=== PATIENT | female | born 2000 | race Caucasian/White ===

== ENCOUNTER 2021-05-18 11:03 | Emergency (ER) | payer BC, SELFPAY ==
[2021-05-18 12:36] VITALS: BP 114/63; PULSE 85; RESP 16; TEMP 37; O2SAT 99; BMI 26.5
[2021-05-18 12:50] LABS: UTC Influenza A Antigen Negative (Negative); UTC Influenza B Antigen Negative (Negative)
[2021-05-18 12:51] LABS: UTC Strep Screen (Rapid) Negative (Negative)
--- NOTE | 2021-05-18 13:02 | HMH.EDUTC ---
[facility] [place] Disposition Clinical Impression: Viral syndrome Sinusitis Qualifiers: Sinusitis location: unspecified location Chronicity: acute Recurrence: non-recurrent Qualified Code(s): J01.90 - Acute sinusitis, unspecified Pharyngitis Qualifiers: Pharyngitis/tonsillitis etiology: unspecified etiology Qualified Code(s): J02.9 - Acute pharyngitis, unspecified Disposition: Home, Self-Care Condition on Discharge: Good Instructions: DI for Sinusitis, Preventing the Spread of Coronavirus Discharge Instructions Additional Instructions: Drink plenty of fluids. Take tylenol or ibuprofen for pain or fever. Take the medications as directed. Follow up with your regular doctor. GO TO THE ER FOR ANY WORSENING SYMPTOMS Quarantine until you know the results of your covid-19 test. If it is positive, the health department should call you and give you further instructions about your length of Quarantine and other things. Notify your school or workplace of your results and follow their instructions regarding return to work/school. Prescriptions: Albuterol Sulfate [Albuterol Sulfate Hfa] 2 puffs IH Q6HP PRN 30 Days #1 each PRN Reason: Shortness Of Breath Transmission Status: Received by [id number] Brompheniramine/Pseudoephed/Dm [Bromfed Dm Cough Syrup] 5 ml PO Q6HP PRN #240 ml PRN Reason: Cough Transmission Status: Received by [id number] Azithromycin [Z-Elie 250mg Tab*] 250 mg PO UD DOSE PK #6 tab Transmission Status: Received by [id number] Referrals: Robinson Juarez MD [Primary Care Provider] - Forms: Work/School Release Time of Disposition: 13:24 Medical Decision Making - Medical Records Medical records reviewed: No: I reviewed the patient's medical records. - Benito Inquiry Pt receiving controlled substance: No Vital Signs: 05/18/21 12:36 05/18/21 13:03 Temperature 98.6 F 98.6 F Temperature Source Oral Pulse Rate 85 Pulse Rate [Left] 85 Respiratory Rate 16 16 Blood Pressure 114/63 Blood Pressure [Right Arm] 114/63 Blood Pressure Mean [Right Arm] 80 02 Sat by Pulse Oximetry 99 - Lab Data Lab results reviewed: Yes: I reviewed the patient's lab results. Lab Results 05/18/21 12:41: Strep Scn Rapid Clinic Negative 05/18/21 12:41: Influenza Type A Ag Negative, Influenza Type B Ag Negative Orders (Tests/Meds): ORDERS Category Date Time Status Strep Screen Confirmation Routine Micro 05/18/21 12:41 Received [facility] [place] HPI - General Stated complaint: sore throat, cough, congestion Time Seen by Provider: 05/18/21 13:02 Mode of Arrival: Ambulatory Source of Information: Patient Limitations: No Limitations Description of Symptoms (Recalled from Triage Doc. by RN): pt c/o a fever, congestion/drainage, chills/sweating, sore throat and ear aches. x2days. HEENT Symptoms (Recalled from RN notes): Yes (congestion/drainage, sore throat and ears ache) Resp Symptoms (Recalled from RN notes): Yes (cough) Skin Symptoms (Recalled from RN notes): No MS Symptoms (Recalled from RN notes): No Functional Status (Recalled from RN notes): wnl - History of Present Illness Provider Complaint: She states that she has been feeling bad for the past 2 days. She has had a fever, chills, sinus congestion, and sore throat. She has a history of asthma, but she has not had a significant cough since she started feeling bad. - Related Data Home Medications Medication Instructions Recorded Confirmed cetirizine 10 mg tablet 10 mg PO QDAY 05/26/17 09/20/18 levonorgestrel-ethinyl estradiol PO ONCE 28 Days #28 tab 05/26/17 09/20/18 0.1 mg-20 mcg tablet Previous Rx's Medication Instructions Recorded Albuterol Sulfate [Albuterol 2 puffs IH Q6HP PRN 30 Days #1 each 05/18/21 Sulfate Hfa] Azithromycin [Z-Elie 250mg Tab*] 250 mg PO UD DOSE PK #6 tab 05/18/21 Brompheniramine/Pseudoephed/Dm 5 ml PO Q6HP PRN #240 ml 05/18/21 [Bromfed Dm Cough Syrup] Allergies
[2021-05-18 13:03] VITALS: BP 114/63; PULSE 85; RESP 16; TEMP 37
== END 2021-05-18 13:36 | disposition home or self-care (01) ==
PROVIDERS: Emergency Provider Nurse Practitioner Family; PCP Family Medicine
DX: U07.1 COVID-19 (principal); J01.90 Acute sinusitis, unspecified; J02.9 Acute pharyngitis, unspecified; J45.909 Unspecified asthma, uncomplicated
CPT/HCPCS: 87804; 87880; 99203; C9803; G0463; U0003; U0005

== ENCOUNTER 2021-11-02 11:23 | Emergency (ER) | payer BC, SELFPAY ==
[2021-11-02 11:36] VITALS: BP 116/67; PULSE 84; RESP 17; TEMP 36.6; O2SAT 100; BMI 27.4
[2021-11-02 11:44] LABS: Adenovirus,PCR Not Detected (NotDetected); Bordetella Pertussis Not Detected (NotDetected); Chlamydophila Pneumoniae, PCR Not Detected (NotDetected); Coronavirus 19, PCR Not Detected (NotDetected); Coronavirus 229E Not Detected (NotDetected); Coronavirus NL63 Not Detected (NotDetected); Coronavirus OC43 Not Detected (NotDetected); Coronovirus HKU1,PCR Not Detected (NotDetected); Human Metapneumovirus Not Detected (NotDetected); Influenza A, PCR Not Detected (NotDetected); Influenza AH1, 2009 Not Detected (NotDetected); Influenza AH1, PCR Not Detected (NotDetected); Influenza AH3,PCR Not Detected (NotDetected); Influenza B, PCR Not Detected (NotDetected); Mycoplasma Pneumoniae, PCR Not Detected (NotDetected); Parainfluenza 1, PCR Not Detected (NotDetected); Parainfluenza 2, PCR Not Detected (NotDetected); Parainfluenza 3, PCR Not Detected (NotDetected); Parainfluenza 4, PCR Not Detected (NotDetected); Rhinovirus/Enterovirus Not Detected (NotDetected)
--- NOTE | 2021-11-02 12:05 | HMH.EDUTC ---
[facility] [place] Impression: Laryngitis, Bronchitis Disposition: Home, Self-Care Condition on Discharge: Good Instructions: DI for Laryngitis, Preventing the Spread of Coronavirus Discharge Instructions Additional Instructions: Drink plenty of fluids. Take tylenol or ibuprofen for pain or fever. Take the medications as directed. Follow up with your regular doctor. GO TO THE ER FOR ANY WORSENING SYMPTOMS Don't start the oral steroids until tomorrow, since you had the shot here today. Prescriptions: Brompheniramine/Pseudoephed/Dm [Bromfed Dm Cough Syrup] 5 ml PO Q6HP PRN #240 ml PRN Reason: Cough Transmission Status: [facility] Benzonatate [Benzonatate 100mg cap] 100 mg PO TIDP PRN #30 cap PRN Reason: Cough Transmission Status: [facility] methylPREDNISolone [Medrol] 4 mg PO DIRECTED 6 Days #21 packet Transmission Status: [facility] Azithromycin [Z-Elie 250mg Tab*] 250 mg PO UD DOSE PK #6 tab Transmission Status: [facility] Referrals: Robinson Juarez MD [Primary Care Provider] - Time of Disposition: 12:20 Medical Decision Making - Medical Records Medical records reviewed: No: I reviewed the patient's medical records. - Benito Inquiry Pt receiving controlled substance: No Vital Signs: 11/02/21 11:36 11/02/21 12:26 Temperature 97.8 F 97.8 F Temperature Source Oral Pulse Rate 84 Pulse Rate [Left Radial] 84 Respiratory Rate 17 17 Blood Pressure 116/67 Blood Pressure [Right Arm] 116/67 Blood Pressure Mean [Right Arm] 83 02 Sat by Pulse Oximetry 100 - Lab Data Lab results reviewed: Yes: I reviewed the patient's lab results. Lab Results 11/02/21 11:30: Chlamy pneumoniae PCR Not detected, Adenovirus (PCR) Not detected, B. pertussis DNA (PCR) Not detected, Coronavirus OC43 (PCR) Not detected, Coronavirus HKU1 (PCR) Not detected, Coronavirus 229E (PCR) Not detected, SARS-CoV-2 (PCR) Not detected, Coronavirus NL63 (PCR) Not detected, Human Metapneumovir PCR Not detected, Influenza A (H1) PCR Not detected, Influ A (H1N1/09) PCR Not detected, Influenza A (H3) PCR Not detected, Influenza Type A (PCR) Not detected, Influenza Type B (PCR) Not detected, M. pneumoniae (PCR) Not detected, Parainfluenza 1 (PCR) Not detected, Parainfluenza 2 (PCR) Not detected, Parainfluenza 3 (PCR) Not detected, Parainfluenza 4 (PCR) Not detected, RSV (PCR) Detected A, Entero/Rhino (PCR) Not detected 11/02/21 11:30: Group A Strep Rapid Negative Orders (Tests/Meds): ED MEDICATIONS Discontinued Medications Generic Name Dose Route Start Last Admin Trade Name Freq PRN Reason Stop Dose Admin Dexamethasone Sodium Phosphate 8 mg 11/02/21 12:16 11/02/21 12:25 Dexamethasone 4mg/Ml 1ml Vial IM 11/02/21 12:17 8 mg ONCE ONE Administration ORDERS Category Date Time Status Strep Screen Confirmation Stat Micro 11/02/21 11:30 [place] [facility] [place] - General Stated complaint: sore throat, loss of voice, yellow congestion Time Seen by Provider: 11/02/21 12:05 Description of Symptoms (Recalled from Triage Doc. by RN): patient comes in today with complaints of sore throat, hoarseness, blisters in mouth, bilateral ear pain,. productive cough. symptoms began . pt was exposed to RSV HEENT Symptoms (Recalled from RN notes): Yes Resp Symptoms (Recalled from RN notes): Yes Skin Symptoms (Recalled from RN notes): No MS Symptoms (Recalled from RN notes): No Functional Status (Recalled from RN notes): wnl - History of Present Illness Provider Complaint: Her mother states that the patient has had scratchy sore throat, cough, chest congestion with yellowish sputum for the past 3 days. They deny any fever, but she has had chills. She is having difficulty speaking due to her symptoms at this time. - Related Data Home Medications Medication Instructions Recorded Confirmed ce
[2021-11-02 12:09] LABS: Strep Scrn Group A (Rapid) Negative (Negative)
[2021-11-02 12:26] VITALS: BP 116/67; PULSE 84; RESP 17; TEMP 36.6
[2021-11-02 14:42] LABS: Respiratory Syncytial Virus Detected (NotDetected)
== END 2021-11-02 12:33 | disposition home or self-care (01) ==
PROVIDERS: Emergency Provider Nurse Practitioner Family; PCP Family Medicine
DX: J04.0 Acute laryngitis (principal); J20.5 Acute bronchitis due to respiratory syncytial virus
CPT/HCPCS: 87430; 87581; 87632; 87798; 96372; 99212; C9803; G0463; U0003; U0005

== ENCOUNTER 2022-01-08 09:05 | Emergency (ER) | payer BC, SELFPAY ==
[2022-01-08 10:00] VITALS: BP 110/67; PULSE 103; RESP 19; TEMP 37.3; O2SAT 100; BMI 28.0
[2022-01-08 10:18] LABS: UTC Strep Screen (Rapid) Negative (Negative)
--- NOTE | 2022-01-08 10:21 | EXP.UTC ---
Discharge Plan Disposition Patient Disposition: Home, Self-Care Condition: Good Prescriptions Prescriptions: New ondansetron 4 mg Tablet,Disintegrating 4 mg PO Q8H PRN (Reason: Nausea) Qty: 20 0RF No Action levonorgestrel-ethinyl estrad 0.1-20 mg-mcg tablet 1 tab PO ONCE 28 Days Qty: 28 Label Comments: cetirizine [Zyrtec] 10 mg tablet 10 mg PO QDAY Referrals Referrals: Robinson Juarez MD [Primary Care Provider] - Enter time for follow up Clinical Impressions Clinical Impression: Viral syndrome Stand Alone Forms Stand Alone Forms: Work/School Release Instructions Patient Instructions: Diarrhea, DI for Viral Syndrome, Coronavirus Disease 2019, Preventing the Spread of Coronavirus Discharge Instructions Discharge ED Provider: Lisa Alvarado [facility] [place] General Stated complaint: Congestion, sore throat, vomiting, diarreah Mode of Arrival: Ambulatory Source of Information: Patient and Relative Limitations: No Limitations Time Seen by Provider: 01/08/22 10:21 Description of Symptoms (Recalled from Triage Doc. by RN): PATIENT C/O VOMITING, DIARRHEA, HEADACHE, AND SORE THROAT SINCE WEDNESDAY HEENT Symptoms (Recalled from RN notes): Yes Resp Symptoms (Recalled from RN notes): No Skin Symptoms (Recalled from RN notes): No MS Symptoms (Recalled from RN notes): No Functional Status (Recalled from RN notes): WNL History of Present Illness Provider Complaint: Patient states that she has not felt well since Wednesday States that on Wednesday she had Vomiting and diarrhea States that diarrhea has continued but not vomited since Wednesday but has had some nausea States that she has been having body aches, chills and sore scratchy throat so today when she was still not feeling well she came in to get checked Related Data Home Medications Medication Instructions Recorded Confirmed cetirizine 10 mg tablet (Zyrtec) 10 mg PO QDAY Allergy symptoms 05/26/17 01/08/22 levonorgestrel-ethinyl estradiol 1 tab PO ONCE control 28 05/26/17 01/08/22 0.1 mg-20 mcg tablet days #28 tabs Previous Rx's Medication Instructions Recorded ondansetron 4 mg disintegrating 4 mg PO Q8H PRN Nausea #20 tabs 01/08/22 tablet Allergies Allergy/AdvReac Type Severity Reaction Status Date / Time ceftriaxone [From Rocephin] AdvReac Severe Verified 09/20/18 13:08 Worker's Comp Is this a Worker's Comp case?: No PFSH PFSH Medical History Asthma Social History Smoking Status: Never smoker alcohol intake: never substance use type: denies use current occupational status: student Travel in the last 8 weeks: None ROS Obtained: Yes All systems reviewed & no additional complaints except as documented and Yes Systems reviewed as appropriate & no additional complaints except as documented Constitutional Constitutional: Reports system reviewed and no additional complaints, except as documented, Reports body ache, Reports chills, Reports fatigue, Reports fever(s) and Reports headache(s) ENT Ears, Nose, Mouth, and Throat: Reports system reviewed and no additional complaints, except as documented, Reports headache(s), Reports nasal congestion, Reports nasal discharge and Reports sore throat Cardiovascular Cardiovascular: Reports system reviewed and no additional complaints, except as documented Respiratory Respiratory: Reports system reviewed and no additional complaints, except as documented and Reports as per HPI Gastrointestinal Gastrointestingal: Reports system reviewed and no additional complaints, except as documented, as per HPI, diarrhea and vomiting Musculoskeletal Musculoskeletal: Reports system reviewed and no additional complaints, except as documented Neurologic Neurologic: Reports headache(s) Endocrine Endocrine: Reports fatigue Physical Exam General General appearance: alert and in no georgie
[2022-01-08 10:32] VITALS: BP 110/67; PULSE 103; RESP 19; TEMP 37.3; O2SAT 100
[2022-01-08 10:53] LABS: Adenovirus,PCR Not Detected (NotDetected); Bordetella Pertussis Not Detected (NotDetected); Chlamydophila Pneumoniae, PCR Not Detected (NotDetected); Coronavirus 229E Not Detected (NotDetected); Coronavirus NL63 Not Detected (NotDetected); Coronavirus OC43 Not Detected (NotDetected); Coronovirus HKU1,PCR Not Detected (NotDetected); Human Metapneumovirus Not Detected (NotDetected); Influenza A, PCR Not Detected (NotDetected); Influenza AH1, 2009 Not Detected (NotDetected); Influenza AH1, PCR Not Detected (NotDetected); Influenza AH3,PCR Not Detected (NotDetected); Influenza B, PCR Not Detected (NotDetected); Mycoplasma Pneumoniae, PCR Not Detected (NotDetected); Parainfluenza 1, PCR Not Detected (NotDetected); Parainfluenza 2, PCR Not Detected (NotDetected); Parainfluenza 3, PCR Not Detected (NotDetected); Parainfluenza 4, PCR Not Detected (NotDetected); Respiratory Syncytial Virus Not Detected (NotDetected); Rhinovirus/Enterovirus Not Detected (NotDetected)
[2022-01-08 21:58] LABS: Coronavirus 19, PCR Detected (NotDetected)
== END 2022-01-08 10:40 | disposition home or self-care (01) ==
PROVIDERS: Emergency Provider Nurse Practitioner; PCP Family Medicine
DX: R11.10 Vomiting, unspecified (principal); R19.7 Diarrhea, unspecified; Z20.822 Contact with and (suspected) exposure to COVID-19
CPT/HCPCS: 87581; 87632; 87798; 87880; 99212; C9803; G0463; U0003; U0005

== ENCOUNTER 2022-09-20 13:21 | Emergency (ER) | payer BC, SELFPAY ==
[2022-09-20 13:44] VITALS: BP 118/67; PULSE 77; RESP 18; TEMP 37.2; O2SAT 99; BMI 29.6
[2022-09-20 13:54] LABS: UTC Strep Screen (Rapid) Positive (Negative)
--- NOTE | 2022-09-20 13:58 | EXP.UTC ---
Discharge Plan Disposition Patient Disposition: Home, Self-Care Condition: Good Prescriptions Prescriptions: New azithromycin [azithromycin] 250 mg tablet 250 mg PO DIRECTED Qty: 6 0RF Rx Instructions: Take two (2) tablets on day #1, then one (1) tablet day #2 thru #5 No Action levonorgestrel-ethinyl estrad 0.1-20 mg-mcg tablet 1 tab PO ONCE 28 Days Qty: 28 Label Comments: cetirizine [Zyrtec] 10 mg tablet 10 mg PO QDAY ondansetron 4 mg Tablet,Disintegrating 4 mg PO Q8H PRN (Reason: Nausea) Qty: 20 0RF Referrals Follow up/Referrals: Robinson Juarez MD [Primary Care Provider] - See instructions Activity Restrictions/Add. Instructions Additional Instructions/Restrictions: Start antibiotics today be sure to take it as ordered with the full length of time although you should start feeling better in 24-48 hours. Change toothbrush and toothpaste 24-48 hours after starting antibiotics Tylenol or Motrin as needed for fever or pain Encourage fluids, water, Gatorade, Powerade, try cold fluids, popsicles, ice cream will make it feel better You are contagious for 24 hours. Avoid kissing anyone, no eating or drinking after anyone. You are contagious. Follow-up the ER for new or worsening symptoms or no noticeable improvement over the next 24-48 hours. Follow-up with PCP this week. Clinical Impressions Clinical Impression: Strep sore throat Stand Alone Forms Stand Alone Forms: Work/School Release Instructions Patient Instructions: DI for Strep Throat [facility]charge [facility] [place] HPI General Stated complaint: sore throat,blisters,headache, Mode of Arrival: Ambulatory Source of Information: Patient Limitations: No Limitations Time Seen by Provider: 09/20/22 13:58 Description of Symptoms (Recalled from Triage Doc. by RN): pt c/o a sore throat and blisters in her mouth x2d HEENT Symptoms (Recalled from RN notes): Yes Resp Symptoms (Recalled from RN notes): No Skin Symptoms (Recalled from RN notes): No MS Symptoms (Recalled from RN notes): No Functional Status (Recalled from RN notes): wnl History of Present Illness Provider Complaint: 21 yr old female presents for sore throat and blisters in mouth for 2 days Related Data Home Medications Medication Instructions Recorded Confirmed cetirizine 10 mg tablet (Zyrtec) 10 mg PO QDAY Allergy symptoms 05/26/17 01/08/22 levonorgestrel-ethinyl estradiol 1 tab PO ONCE control 28 05/26/17 01/08/22 0.1 mg-20 mcg tablet days #28 tabs Previous Rx's Medication Instructions Recorded ondansetron 4 mg disintegrating 4 mg PO Q8H PRN Nausea #20 tabs 01/08/22 tablet azithromycin 250 mg tablet 250 mg PO DIRECTED #6 tabs 09/20/22 Allergies Allergy/AdvReac Type Severity Reaction Status Date / Time ceftriaxone [From Rocephin] AdvReac Severe Verified 09/20/22 13:47 Worker's Comp Is this a Worker's Comp case?: No [facility] Disclaimer: The information contained in this section may have been updated after the patient was seen, as this information can be updated by other users. Medical History , GARAGE HAND) Asthma Social History , GARAGE HAND) Smoking Status: Never smoker alcohol intake: never substance use type: denies use current occupational status: student Travel in the last 8 weeks: None ROS Obtained: Yes All systems reviewed & no additional complaints except as documented Constitutional Constitutional: Reports system reviewed and no additional complaints, except as documented, Reports as per HPI and Reports fever(s) Eyes Eyes: Reports system reviewed and no additional complaints, except as documented ENT Ears, Nose, Mouth, and Throat: Reports system reviewed and no additional complaints, except as documented, Reports as per HPI and Reports sore throat Cardiovascular Cardiovascula
[2022-09-20 14:07] VITALS: BP 118/67; PULSE 77; RESP 18; TEMP 37.2
== END 2022-09-20 14:07 | disposition home or self-care (01) ==
PROVIDERS: Emergency Provider Nurse Practitioner Family; PCP Family Medicine
DX: J02.0 Streptococcal pharyngitis (principal); R51.9 Headache, unspecified
CPT/HCPCS: 87880; 99212; 99214; G0463

== ENCOUNTER 2023-03-03 17:44 | Emergency (ER) | payer BC, SELFPAY ==
[2023-03-03 17:44] VITALS: BP 131/80; PULSE 107; RESP 18; TEMP 36.9; O2SAT 99; BMI 28.9
--- OUTSIDE RECORDS SUMMARY | 2023-03-03 17:50 | XMS_ITS | Patient Health Record ---
Author Name Unknown Organization [facility] PR[facility] Address [address] [place] [address] Care Team Providers Care [employer] Architect Name Role Phone Huong Eli Unavailable [phone] Cat Laura Unavailable [phone] Angela Menjivar Unavailable [phone] ALLERGIES Allergen (clinical drug ingredient) Drug/Non Drug Allergy documented on EMR Reaction Allergy Type Onset Date Status ROCEPHIN Unspecified Non Drug Allergy 2014-03-02 Active ENCOUNTERS from 1999 to 2023-03-03 Encounter Location Date Provider Diagnosis [facility] [address] [place] [address] September, 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 [place] [address] May, Cat Laura [facility] [address] [place] [address] Jun, Angela Menjivar [facility] [address] [place] [address] Nov, Angela Menjivar [facility] [address] [place] [address] Dec, Angela Menjivar [facility] [address] [place] [address] Oct, Angela Menjivar
--- NOTE | 2023-03-03 18:13 | EXP.UTC ---
Discharge Plan Disposition Patient Disposition: Home, Self-Care Condition: Good Prescriptions Prescriptions: New ondansetron 4 mg tablet,disintegrating 4 mg PO Q8H PRN (Reason: nausea and vomiting) Qty: 10 0RF dicyclomine 10 mg capsule 10 mg PO TID PRN (Reason: abdominal pain/cramping) Qty: 15 0RF No Action levonorgestrel-ethinyl estrad 0.1-20 mg-mcg tablet 1 tab PO ONCE 28 Days Qty: 28 Patient Comments: Referrals Follow up/Referrals: Robinson Juarez MD [Primary Care Provider] - See instructions Activity Restrictions/Add. Instructions Additional Instructions/Restrictions: *Monitor Temp, Over the counter Motrin or Tylenol as directed/as needed Tylenol every 4 hours and Motrin every 6 hours (as long as your family doctor has told you that you can take it) for fever or pain. and straight to ER if unable to lower temp less than 101.0 after medication given *Warm salt water gargles may help to soothe the throat *Throat Lozenges? *Warm fluids like tea with honey may help to soothe the throat? *Sleep elevated *Humidifier/Vaporizer Follow up IMMEDIATELY for new or worsening symptoms or no Noticeable improvement over the next 48-72 hours. 911 for difficulty breathing or swallowing Drink extra fluids with and between meals. If you have difficulty drinking, try very small amounts of water or suck on ice chips. ? Avoid fruit juices, as these do not replace minerals and can actually increase diarrhea. ? Children and adults can use sports drinks to replenish electrolytes. Younger children and infants should use products formulated for children, like oral rehydration solutions. ? Eat food in small amounts and let your stomach recover. ? Get lots of rest. You may feel tired or weak. ? No greasy or fried foods for the next 24-48 hours BRAT diet Bananas Rice Apples and Panora ? Make sure to drink plenty of liquids ? Return if needed ? Straight to ER if any life threatening symptoms ? Zofran as prescribed ? You was given an outpatient order for diarrhea panel, please collect specimen and bring back to outpatient lab then call back to the [facility] or follow up with family doctor for results ? Follow up with family doctor in the next 48-72 hours if no improvement or any worsening of symptoms You were tested for today for COVID19 your test result should be back in the next 24-48 hours, you may check your results on the [facility] [employer] [facility] for your results if it is positive you will need to quarantine for 5 days Clinical Impressions Clinical Impression: Viral syndrome Stand Alone Forms Stand Alone Forms: Work/School Release Instructions Patient Instructions: Diarrhea, DI for Viral Syndrome, DI for Nausea -- Adult Discharge ED Provider: Lisa Alvarado [facility] [place] General Stated complaint: body aches, fever, upset stomach Mode of Arrival: Ambulatory Source of Information: Patient Limitations: No Limitations Time Seen by Provider: 03/03/23 18:13 Description of Symptoms (Recalled from Triage Doc. by RN): fever, nausea, diarrhea, and body aches HEENT Symptoms (Recalled from RN notes): Yes Resp Symptoms (Recalled from RN notes): No Skin Symptoms (Recalled from RN notes): No MS Symptoms (Recalled from RN notes): No Functional Status (Recalled from RN notes): n/a History of Present Illness Provider Complaint: Patient states that she hasnt been feeling well today States that she has been feeling achy all over, chills, low grade fever, nausea and diarrhea States that this evening she still wasnt feeling well so she came in to get checked out Related Data Home Medications Medication Instructions Recorded Confirmed levonorgestrel-ethinyl estradiol 1 tab PO ONCE control 28 05/26/17 03/03/23 0.1 mg-20 mcg tablet days #28 tabs Previous Rx's Medication Inst
[2023-03-03 18:16] LABS: UTC Influenza A Antigen Negative (Negative); UTC Influenza B Antigen Negative (Negative)
[2023-03-03 18:28] VITALS: BP 131/80; PULSE 107; RESP 18; TEMP 36.9; O2SAT 99
== END 2023-03-03 18:28 | disposition home or self-care (01) ==
PROVIDERS: Emergency Provider Nurse Practitioner; PCP Family Medicine
DX: R50.9 Fever, unspecified (principal); R19.7 Diarrhea, unspecified; R11.0 Nausea; B34.9 Viral infection, unspecified; J45.909 Unspecified asthma, uncomplicated
CPT/HCPCS: 87635; 87804; 99212; 99214; G0463

== ENCOUNTER 2024-05-03 09:02 | Emergency (ER) | payer BC, SELFPAY ==
[2024-05-03 09:36] VITALS: BP 116/53; PULSE 81; RESP 18; TEMP 36.8; O2SAT 100; BMI 27.4
--- NOTE | 2024-05-03 09:45 | ED_ITS ---
Discharge Plan Disposition Patient Disposition: Home, Self-Care Condition: Good Prescriptions Prescriptions: New amoxicillin 500 mg tablet 500 mg PO TID 10 Days Qty: 30 0RF [id number]-bdgrntovs-IU [Bromfed DM] 2-30-10 mg/5 mL Syrup 5 ml PO Q6H PRN (Reason: Cough) Qty: 240 0RF No Action loratadine [Claritin] 10 mg tablet 10 mg PO DAILY Referrals Follow up/Referrals: Robinson Juarez MD [Primary Care Provider] - See instructions Activity Restrictions/Add. Instructions Additional Instructions/Restrictions: Drink plenty of fluids. Take tylenol or ibuprofen for pain or fever. Take the medications as directed. Follow up with your regular doctor. GO TO THE ER FOR ANY WORSENING SYMPTOMS Clinical Impressions Clinical Impression: Pharyngitis Stand Alone Forms Stand Alone Forms: Work/School Release Instructions Patient Instructions: Sore Throat, DI for Pharyngitis/Tonsillopharyngitis -- Adult Print Language Print Language: Czech Discharge ED Provider: Gian Maguire [facility] General Stated complaint: dizzy sore throat vomiting Mode of Arrival: Ambulatory Source of Information: Patient Time Seen by Provider: 05/03/24 09:45 Description of Symptoms (Recalled from Triage Doc. by RN): SORE THROAT, VOMITING, DIZZY HEENT Symptoms (Recalled from RN notes): Yes Resp Symptoms (Recalled from RN notes): No Skin Symptoms (Recalled from RN notes): No MS Symptoms (Recalled from RN notes): No Functional Status (Recalled from RN notes): WNL Related Data Home Medications ?Medication ?Instructions ?Recorded ?Confirmed loratadine 10 mg tablet (Claritin) 10 mg PO DAILY 01/25/24 05/03/24 Previous Rx's ?Medication ?Instructions ?Recorded amoxicillin 500 mg tablet 500 mg PO TID 10 days #30 tabs 05/03/24 laeiedozrsfxljv-zhtcgrrqicffwol-OL 5 ml PO Q6H PRN Cough #240 mL 05/03/24 2 mg-30 mg-10 mg/5 mL oral syrup (Bromfed DM) Allergies Allergy/AdvReac Type Severity Reaction Status Date / Time ceftriaxone (From Rocephin) AdvReac Severe Verified 01/25/24 10:58 Worker's Comp Is this a Worker's Comp case?: No PFSH PFSH Disclaimer: The information contained in this section may have been updated after the patient was seen, as this information can be updated by other users. Medical History (Updated 05/03/24 @ 10:29 by Gian Maguire APRN) Asthma Social History Smoking Status: Never smoker alcohol intake: never substance use type: denies use current occupational status: student Travel in the last 8 weeks: None Have you lived/traveled outside US in past 30 days?: No Contact w/someone who lives/traveled outside US past 30 days?: No Exposure to someone with infectious disease in past 14 days?: No Do you have a fever (greater than 100.4 F or 38 C)?: No Have you tested positive for COVID-19: No Exposed to someone with COVID-19 in past 14 days?: No Do you have a sore throat?: No Do you have a cough?: No Do you have any weakness?: No Do you have any diarrhea?: No Are you experiencing any unusual bleeding?: No Do you have any muscle aches/pain?: No Do you have any abdominal pain?: No Are you experiencing loss of taste or smell?: No ROS Obtained: Yes All systems reviewed & no additional complaints except as documented Constitutional Constitutional: Reports chills and Reports fever(s) Eyes Eyes: Denies eye discharge ENT Ears, Nose, Mouth, and Throat: Reports as per HPI Cardiovascular Cardiovascular: Denies chest pain Respiratory Respiratory: Denies chest congestion and Reports cough Gastrointestinal Gastrointestingal: Reports nausea; Denies abdominal pain, constipation, cramping, diarrhea or vomiting Musculoskeletal Musculoskeletal: Denies arthralgias Integumentary/Breasts Skin/Breast: Denies rash Neurologic Neurologic: Denies paresthesias Physical Exam General General appearance: alert and in no apparent distress Head Head exam: atraumatic, normocephalic and normal inspection Eye Eye exam: Present normal appearance, PERRL and EOMI ENT ENT exam: Present mucous membranes moist and normal external ear exam Expanded ENT Exam TM/Canal exam: Bilateral TM: erythema and bulging Nose exam: Absent sinus tenderness Mouth exam: Present normal external inspection; Absent drooling Teeth exam: Present normal inspection Throat exam: Present tonsillar erythema, tonsillomegaly and tonsillar exudate Neck Neck exam: Present normal inspection, full ROM and trachea midline; Absent tenderness, meningismus or lymphadenopathy Chest Chest inspection: Present normal inspection and symmetric chest wall rise; Absent tenderness Respiratory Respiratory exam: Present normal lung sounds bilaterally; Absent respiratory distress, wheezes, stridor or accessory muscle use Cardiovascular Cardiovascular exam: Present regular rate and normal rhythm; Absent systolic murmur or diastolic murmur Abdominal Exam Abdominal exam: Present soft and normal bowel sounds; Absent distention, tenderness, guarding, rebound or rigidity Extremities Exam Extremities exam: Present normal inspection and normal capillary refill; Absent calf tenderness Back Exam Back exam: Present normal inspection and full ROM; Absent tenderness, CVA tenderness (R) or CVA tenderness (L) Neurological Exam Neurological exam: Present alert, oriented X3 and CN II-XII intact Psychiatric Psychiatric exam: Present normal affect and normal mood Skin Skin exam: Present warm, dry, intact and normal color Medical Decision Making Medical Records Medical records reviewed: No I reviewed the patient's medical records. Screening: Per USPSTF and CDC recommendations, given the prevalence of disease in our region, it is our hospital?s policy to screen for HIV and viral Hepatitis for all patients aged 18 and over and those with ongoing risk factors. Benito Inquiry Pt receiving controlled substance: No Vital Signs: 05/03/24 09:36 Temperature 98.2 F Temperature Source Oral Pulse Rate [Left Radial] 81 Respiratory Rate 18 Blood Pressure [Left Arm] 116/53 L Blood Pressure Mean [Left Arm] 74 02 Sat by Pulse Oximetry 100 Lab Data Lab results reviewed: Yes I reviewed the patient's lab results.
[2024-05-03 09:46] LABS: UTC Strep Screen (Rapid) Negative (Negative)
[2024-05-03 10:30] VITALS: BP 116/53; PULSE 81; RESP 18; TEMP 36.8
[2024-05-03 10:36] LABS: Coronavirus 19, PCR Not Detected (NotDetected); Influenza A, PCR Not Detected (NotDetected); Influenza B, PCR Not Detected (NotDetected)
== END 2024-05-03 10:34 | disposition home or self-care (01) ==
PROVIDERS: Emergency Provider Nurse Practitioner Family; PCP Family Medicine
DX: J02.0 Streptococcal pharyngitis (principal)
CPT/HCPCS: 87636; 87880; 99213; G0381

== ENCOUNTER 2024-06-20 19:01 | Emergency (ER) | payer BC, SELFPAY ==
[2024-06-20] VITALS (7 sets, daily range): BP systolic 103–127; BP diastolic 50–88; PULSE 75–105; RESP 16–20; TEMP 36.7–36.8; O2SAT 83–100; BMI 27.4
--- NOTE | 2024-06-20 19:19 | HMH.EDGENADL ---
Discharge Plan Disposition Patient Disposition: Home, Self-Care Prescriptions Prescriptions: New promethazine 25 mg tablet 25 mg PO TID PRN (Reason: nausea and vomiting) 5 Days Qty: 20 0RF ondansetron 4 mg tablet,disintegrating 4 mg PO Q6H PRN (Reason: nausea and vomiting) 5 Days Qty: 20 0RF nitrofurantoin monohyd/m-cryst 100 mg capsule 100 mg PO BID 5 Days Qty: 10 0RF Rx Instructions: must administer with a meal/food No Action loratadine [Claritin] 10 mg tablet 10 mg PO DAILY Referrals Follow up/Referrals: Robinson Juarez MD [Primary Care Provider] - See instructions Activity Restrictions/Add. Instructions Additional Instructions/Restrictions: Please take your Phenergan first-line for nausea vomiting and use Zofran as a backup. Return with any significant worsening of your symptoms keep your outpatient follow-up with [facility]. Clinical Impressions Clinical Impression: Nausea and vomiting during , Asymptomatic bacteriuria during Instructions Patient Instructions: DI for Diarrhea and Traveler's Diarrhea -- Adult, DI for Diarrhea and Traveler's Diarrhea -- Child, DI for Nausea -- Adult, DI for Nausea -- Child Print Language Print Language: Burmese Discharge ED Provider: Manohar Webster General Adult HPI <CAIN Byrne - Last Filed: 06/20/24 20:35> General Chief complaint: Nausea/Vomiting/Diarrhea Stated complaint: fainted,vomiting Time Seen by Provider: 06/20/24 19:15 History of Present Illness HPI narrative: Patient presents for evaluation of syncope and nausea. Patient is 8 weeks with her first and has had significant hyperemesis of . Patient states she has not been able to keep anything down today so she is gone without. She was out walking her dog and she felt lightheaded and sat down to recover. Patient thought she had an which should be an rewalking she passed out and woke up on the ground. She denies any injury pain headache chest pain shortness of breath fever chills hemoptysis hematochezia melena diarrhea. Patient reports that she is still nauseated now though. She has not yet seen [facility] but had an appointment scheduled for tomorrow. Related Data Home Medications ?Medication ?Instructions ?Recorded ?Confirmed loratadine 10 mg tablet (Claritin) 10 mg PO DAILY 09/10/24 02/04/25 Previous Rx's ?Medication ?Instructions ?Recorded nitrofurantoin 100 mg PO BID 5 days #10 caps 06/20/24 monohydrate/macrocrystals 100 mg capsule ondansetron 4 mg disintegrating 4 mg PO Q6H PRN nausea and 06/20/24 tablet vomiting 5 days #20 tabs promethazine 25 mg tablet 25 mg PO TID PRN nausea and 06/20/24 vomiting 5 days #20 tabs Allergies Allergy/AdvReac Type Severity Reaction Status Date / Time ceftriaxone (From Rocephin) AdvReac Severe Verified 01/25/24 10:58 PFSH <CAIN Byrne - Last Filed: 06/20/24 20:35> PFS Disclaimer: The information contained in this section may have been updated after the patient was seen, as this information can be updated by other users. Medical History (Updated 06/20/24 @ 21:36 by Manohar Webster MD) Asthma Social History Smoking Status: Never smoker alcohol intake: never substance use type: denies use current occupational status: student Travel in the last 8 weeks: None Have you lived/traveled outside US in past 30 days?: No Contact w/someone who lives/traveled outside US past 30 days?: No Exposure to someone with infectious disease in past 14 days?: No Do you have a fever (greater than 100.4 F or 38 C)?: No Have you tested positive for COVID-19: No Exposed to someone with COVID-19 in past 14 days?: No Do you have a sore throat?: No Do you have a cough?: No Do you have any weakness?: Yes Do you have any diarrhea?: No Are you experiencing any unusual bleeding?: No Do you have any muscle aches/pain?: No Do you have any abdominal pain?: No Are you experiencing loss of taste or smell?: No Other Medical History Have you received the Flu Vaccine for this season: No Have you received the Pneumonia Vaccine: No <CAIN Byrne - Last Filed: 06/20/24 20:35> ROS Obtained: Yes Systems reviewed as appropriate & no additional complaints except as documented Physical Exam <CIAN Byrne - Last Filed: 06/20/24 20:35> General General appearance: alert and in no apparent distress Eye Eye exam: Present PERRL Respiratory Respiratory exam: Present normal lung sounds bilaterally Cardiovascular Cardiovascular exam: Present tachycardia Neurological Exam Neurological exam: Present alert, oriented X3, CN II-XII intact and normal gait; Absent motor sensory deficit Medical Decision Making <CAIN Byrne - Last Filed: 06/20/24 20:35> Medical Records Medical records reviewed: Yes I reviewed the patient's medical records. Screening: Per USPSTF and CDC recommendations, given the prevalence of disease in our region, it is our hospital?s policy to screen for HIV and viral Hepatitis for all patients aged 18 and over and those with ongoing risk factors. Benito Inquiry Pt receiving controlled substance: No Vital Signs: 06/20/24 19:10 06/20/24 19:14 06/20/24 19:30 Temperature 98.2 F Temperature Source Oral Pulse Rate 96 H 91 H Pulse Rate [Right Brachial] 105 H Respiratory Rate 16 Blood Pressure 124/88 127/76 Blood Pressure [Right Arm] 124/88 Blood Pressure Mean [Right Arm] 100 Blood Pressure Source Blood Pressure Source [Right Arm] Automatic Cuff Blood Pressure Position 02 Sat by Pulse Oximetry 100 99 99 Oxygen Delivery Method Room Air 06/20/24 20:00 06/20/24 20:23 06/20/24 21:13 Temperature Temperature Source Pulse Rate 75 81 101 H Pulse Rate [Right Brachial] Respiratory Rate 16 16 Blood Pressure 110/81 110/81 103/50 L Blood Pressure [Right Arm] Blood Pressure Mean [Right Arm] Blood Pressure Source Automatic Cuff Automatic Cuff Blood Pressure Source [Right Arm] Blood Pressure Position Supine Sitting 02 Sat by Pulse Oximetry 83 L 99 Oxygen Delivery Method Room Air Lab Data Lab results reviewed: Yes I reviewed the patient's lab results. Lab Results 06/20/24 19:09: Urine Color Yellow, Urine Appearance Clear, Urine pH 7.0, Ur Specific Leon 1.010, Urine Protein Negative, Urine Glucose (UA) Negative, Urine Ketones Negative, Urine Blood Negative, Urine Nitrate Negative, Urine Bilirubin Negative, Urine Urobilinogen 0.2, Ur Leukocyte Esterase 3+ A, Urine RBC None, Urine WBC 10-20, Ur Squamous Epith Cells 10-20, Urine Bacteria 2+, Urine HCG, Qual Positive 06/20/24 19:56: WBC 6.4, RBC 5.00, Hgb 14.2, Hct 43.1, MCV 86.2, MCH 28.4, MCHC 32.9, RDW 12.4, Plt Count 253, MPV 10.4, Neut % (Auto) 60.0, Lymph % (Auto) 29.8, [place] % (Auto) 6.1, Eos % (Auto) 3.3, Baso % (Auto) 0.8, Neut # (Auto) 3.8, Lymph # (Auto) 1.9, [place] # (Auto) 0.4, Eos # (Auto) 0.2, Baso # (Auto) 0.1, Sodium 138, Potassium 3.8, Chloride 104, Carbon Dioxide 23, Anion Gap 14.8, BUN 7, Creatinine 0.60, Estimated Creat Clear 155, Estimated GFR 123, Est GFR ( Amer) 149, Glucose 93, Calcium 9.7, Magnesium 1.7, Total Bilirubin 0.4, AST 25, ALT 21, Alkaline Phosphatase 90, Troponin I < 0.01, Total Protein 6.9, Albumin 4.4, Globulin 2.5, Albumin/Globulin Ratio 1.8, TSH 1.09, Free T4 Index 3.8 L, Thyroxine (T4) 12.4 H, T3 Uptake 31 06/20/24 19:56 06/20/24 19:56 Orders (Tests/Meds): ED MEDICATIONS Discontinued Medications Generic Name Dose Route Start Last Admin Trade Name Freq PRN Reason Stop Dose Admin Sodium Chloride 1,000 mls @ 999 mls/hr 06/20/24 19:22 06/20/24 19:47 Sod Chlor 0.9% 1000ml Bag IV 06/20/24 20:22 999 mls/hr .Q1H1M ONE Administration Promethazine HCl 12.5 mg 06/20/24 19:29 06/20/24 19:46 Promethazine Hcl 25mg/Ml 1ml Vial IV 06/20/24 19:30 12.5 mg ONCE ONE Administration Sodium Chloride 25 ml 06/20/24 19:29 06/20/24 19:46 Sodium Chloride 0.9% 25ml Bag IV 06/20/24 19:30 25 ml ONCE ONE Administration ORDERS Category Date Time Status POCUS Point of Care (ER Only) Stat Exams 06/20/24 19:26 Completed CBC w/Auto Diff [Complete Blood Count Auto Diff] Stat Lab 06/20/24 19:56 Completed CMP [Comprehensive Metabolic Panel] Stat Lab 06/20/24 19:56 Results HCG,Quantitative Stat Lab 06/20/24 19:56 Results Magnesium Stat Lab 06/20/24 19:56 Completed Thyroid Panel Stat Lab 06/20/24 19:56 Completed Trop I [Troponin I] Stat Lab 06/20/24 19:56 Results Troponin I Q3H Lab 06/20/24 22:30 Ordered Troponin I Q3H Lab 06/21/24 01:30 Ordered UA [Urinalysis and Microscopic] Stat Lab 06/20/24 19:09 Completed Urine , HCG Qual. Stat Lab 06/20/24 19:09 Completed Urine Culture Stat Micro 06/20/24 19:09 Received Medical Decision Narrative: In summary patient is a 23-year-old female who presents to the emergency department for evaluation of syncope and hyperemesis of . Patient is initially normotensive at 124/88 but tachycardic at 105 with sinus tachycardia on the bedside monitor breathing 16 times a minute with an O2 sat of 100% upon arrival, afebrile at 98.2. Physical exam is remarkable for a well-nourished well-developed 23-year-old female who does not currently appear to be acute distress. She has no focal neurologic deficits is awake alert and oriented person place and circumstance [place] Coma Score is 15 cranial nerves II through XII are intact grossly to exam. She has no cervical or dorsal spine tenderness. She has no obvious injury on physical survey is ambulatory in the ER without focal neurologic deficits.. Differential diagnosis includes dehydration versus hyperemesis of versus electrolyte abnormality etc. Initial workup will be conducted with hematologic labs urinalysis POCUS. Initial interventions include crystalloid bolus Phenergan. Initial workup reviewed by me and her POCUS reveals a viable intrauterine urinalysis shows that it is negative for ketones blood nitrite 3+ positive for leukocyte Estrace on dipstick and her microscopic exam shows no red blood cells 10-20 white cells 10-20 epithelial cells and 2+ bacteria. The remainder of her workup is pending at the time of handoff to Dr. Webster at 2100 hrs. <Manohar Webster MD - Last Filed: 06/20/24 21:36> Vital Signs: 06/20/24 19:10 06/20/24 19:14 06/20/24 19:30 Temperature 98.2 F Temperature Source Oral Pulse Rate 96 H 91 H Pulse Rate [Right Brachial] 105 H Respiratory Rate 16 Blood Pressure 124/88 127/76 Blood Pressure [Right Arm] 124/88 Blood Pressure Mean [Right Arm] 100 Blood Pressure Source Blood Pressure Source [Right Arm] Automatic Cuff Blood Pressure Position 02 Sat by Pulse Oximetry 100 99 99 Oxygen Delivery Method Room Air 06/20/24 20:00 06/20/24 20:23 06/20/24 21:13 Temperature Temperature Source Pulse Rate 75 81 101 H Pulse Rate [Right Brachial] Respiratory Rate 16 16 Blood Pressure 110/81 110/81 103/50 L Blood Pressure [Right Arm] Blood Pressure Mean [Right Arm] Blood Pressure Source Automatic Cuff Automatic Cuff Blood Pressure Source [Right Arm] Blood Pressure Position Supine Sitting 02 Sat by Pulse Oximetry 83 L 99 Oxygen Delivery Method Room Air Lab Data Lab Results 06/20/24 19:09: Urine Color Yellow, Urine Appearance Clear, Urine pH 7.0, Ur Specific Leon 1.010, Urine Protein Negative, Urine Glucose (UA) Negative, Urine Ketones Negative, Urine Blood Negative, Urine Nitrate Negative, Urine Bilirubin Negative, Urine Urobilinogen 0.2, Ur Leukocyte Esterase 3+ A, Urine RBC None, Urine WBC 10-20, Ur Squamous Epith Cells 10-20, Urine Bacteria 2+, Urine HCG, Qual Positive 06/20/24 19:56: WBC 6.4, RBC 5.00, Hgb 14.2, Hct 43.1, MCV 86.2, MCH 28.4, MCHC 32.9, RDW 12.4, Plt Count 253, MPV 10.4, Neut % (Auto) 60.0, Lymph % (Auto) 29.8, [place] % (Auto) 6.1, Eos % (Auto) 3.3, Baso % (Auto) 0.8, Neut # (Auto) 3.8, Lymph # (Auto) 1.9, [place] # (Auto) 0.4, Eos # (Auto) 0.2, Baso # (Auto) 0.1, Sodium 138, Potassium 3.8, Chloride 104, Carbon Dioxide 23, Anion Gap 14.8, BUN 7, Creatinine 0.60, Estimated Creat Clear 155, Estimated GFR 123, Est GFR ( Amer) 149, Glucose 93, Calcium 9.7, Magnesium 1.7, Total Bilirubin 0.4, AST 25, ALT 21, Alkaline Phosphatase 90, Troponin I < 0.01, Total Protein 6.9, Albumin 4.4, Globulin 2.5, Albumin/Globulin Ratio 1.8, TSH 1.09, Free T4 Index 3.8 L, Thyroxine (T4) 12.4 H, T3 Uptake 31 Orders (Tests/Meds): ED MEDICATIONS Discontinued Medications Generic Name Dose Route Start Last Admin Trade Name Freq PRN Reason Stop Dose Admin Sodium Chloride 1,000 mls @ 999 mls/hr 06/20/24 19:22 06/20/24 19:47 Sod Chlor 0.9% 1000ml Bag IV 06/20/24 20:22 999 mls/hr .Q1H1M ONE Administration Promethazine HCl 12.5 mg 06/20/24 19:29 06/20/24 19:46 Promethazine Hcl 25mg/Ml 1ml Vial IV 06/20/24 19:30 12.5 mg ONCE ONE Administration Sodium Chloride 25 ml 06/20/24 19:29 06/20/24 19:46 Sodium Chloride 0.9% 25ml Bag IV 06/20/24 19:30 25 ml ONCE ONE Administration ORDERS Category Date Time Status POCUS Point of Care (ER Only) Stat Exams 06/20/24 19:26 Completed CBC w/Auto Diff [Complete Blood Count Auto Diff] Stat Lab 06/20/24 19:56 Completed CMP [Comprehensive Metabolic Panel] Stat Lab 06/20/24 19:56 Results HCG,Quantitative Stat Lab 06/20/24 19:56 Results Magnesium Stat Lab 06/20/24 19:56 Completed Thyroid Panel Stat Lab 06/20/24 19:56 Completed Trop I [Troponin I] Stat Lab 06/20/24 19:56 Results Troponin I Q3H Lab 06/20/24 22:30 Ordered Troponin I Q3H Lab 06/21/24 01:30 Ordered UA [Urinalysis and Microscopic] Stat Lab 06/20/24 19:09 Completed Urine , HCG Qual. Stat Lab 06/20/24 19:09 Completed Urine Culture Stat Micro 06/20/24 19:09 Received Medical Decision Narrative: In summary patient is a 23-year-old female who presents to the emergency department for evaluation of syncope and hyperemesis of . Patient is initially normotensive at 124/88 but tachycardic at 105 with sinus tachycardia on the bedside monitor breathing 16 times a minute with an O2 sat of 100% upon arrival, afebrile at 98.2. Physical exam is remarkable for a well-nourished well-developed 23-year-old female who does not currently appear to be acute distress. She has no focal neurologic deficits is awake alert and oriented person place and circumstance [place] Coma Score is 15 cranial nerves II through XII are intact grossly to exam. She has no cervical or dorsal spine tenderness. She has no obvious injury on physical survey is ambulatory in the ER without focal neurologic deficits.. Differential diagnosis includes dehydration versus hyperemesis of versus electrolyte abnormality etc. Initial workup will be conducted with hematologic labs urinalysis POCUS. Initial interventions include crystalloid bolus Phenergan. Initial workup reviewed by me and her POCUS reveals a viable intrauterine urinalysis shows that it is negative for ketones blood nitrite 3+ positive for leukocyte Estrace on dipstick and her microscopic exam shows no red blood cells 10-20 white cells 10-20 epithelial cells and 2+ bacteria. The remainder of her workup is pending at the time of handoff to Dr. Webster at [address] Webster I took over primary care from Xander Frost around 9 PM. Patient feeling much better labs unremarkable aside from urinalysis that does demonstrate some evidence of possible urinary tract infection however she is not symptomatic so we will treat her for asymptomatic bacteria in the setting of . Keflex was not an option which is primarily first-line for me because she has a ceftriaxone allergy. Therefore nitrofurantoin was prescribed. Phenergan and Zofran were also given first-line she has been told to take Phenergan and use Zofran as a backup she has follow-up with OB tomorrow and she was discharged in improved and stable condition. Procedures <Manohar Webster MD - Last Filed: 06/20/24 21:36> Miscellaneous Procedure Procedure Performed: Limited OB ultrasound Indication: Confirmation of Identified structures: [-Uterus -Left adnexa -Right adnexa -Pouch of [place]] Findings: Uterus: Definitive IUP consistent with dates FHR: 165 Right adnexa: No free fluid Left adnexa: No free fluid Cul de sac: Free fluid absent Impression: -IUP: Present - heart rate: 160 -Ectopic : Absent -Free fluid: Absent Images were saved to permanent archive The study was technically adequate CPT Transabdominal: 16246-10 This study was performed by me, and I personally interpreted all images/videos. Based on my clinical judgement, these images were adequate and did not necessitate further imaging. Critical Care <CAIN Byrne - Last Filed: 06/20/24 20:35> Critical Care Time Critical Care Time: No
[2024-06-20 19:32] LABS: Microscopic, Urine URINE MICROSCOPIC (MICROSCOPIC)
[2024-06-20 19:36] LABS: Urine Pregnancy, HCG Qual. Positive (Negative)
[2024-06-20 19:38] LABS: Appearance,Urine CLEAR (Clear); Bilirubin,Urine Negative (Negative); Blood, Urine Negative (Negative); Color,Urine YELLOW (Yellow); Glucose,Urine (UA) Negative (Negative); Ketones,Urine Negative (Negative); Leukocyte Esterase,Urine 3+ (Negative); Nitrate,Urine Negative (Negative); Protein,Urine Negative (Negative); Urobilinogen,Urine 0.2 EU/dl (0.2)
--- NOTE | 2024-06-20 19:42 | ECG_ITS ---
APPROVED REPORT Exam: Resting ECG HR:96 bpm ECG Measurements Heart Rate 96 AXES MS 130 P 60 QRSd 91 QRS 71 QT 325 T 27 QTc 379 Conclusion SINUS RHYTHM WITH SINUS ARRHYTHMIA NORMAL ECG UNCONFIRMED REPORT Electronically signed by : Gian Webster, 06/20/2024 22:26:42
[2024-06-20] MEDS: SODIUM CHLORIDE 0.9% 25ML BAG 25 ML IV (19:46)
[2024-06-20] MEDS: PROMETHAZINE HCL 25MG/ML 1ML VIAL 12.5 MG IV (19:46)
[2024-06-20] MEDS: 0.9 % SODIUM CHLORIDE 1000ML 1,000 ML 999 ML IV (19:47)
[2024-06-20 20:12] LABS: Bacteria,Urine 2+ /lpf
[2024-06-20 20:12] LABS: Basophils # 0.1 K/mm3 (0-0.2); Basophils % 0.8 % (0.1-2.0); Eosinophils # 0.2 K/mm3 (0.0-0.4); Eosinophils % 3.3 % (0.1-12.0); Hematocrit 43.1 % (37.0-47.0); Hemoglobin 14.2 g/dL (12.2-16.2); Lymphocytes # 1.9 K/mm3 (0.7-4.5); Lymphocytes % 29.8 % (10-50); Mean Corpuscular HGB Conc 32.9 g/dL (31.8-35.4); Mean Corpuscular Hemoglobin 28.4 pg (27.0-31.2); Mean Corpuscular Volume 86.2 fl (81-99); Mean Platelet Volume 10.4 fl (7.4-10.4); Monocytes # 0.4 K/mm3 (0.1-1.0); Monocytes % 6.1 % (1.7-9.3); Neutrophils # 3.8 K/mm3 (1.8-7.8); Platelet Count 253 K/mm3 (142-424); Red Cell Distribution Width 12.4 % (11.5-17.5); White Blood Count 6.4 K/mm3 (4.8-10.8)
--- NOTE | 2024-06-20 20:23 | PC.NURSE ---
Patient states feeling much better
--- NOTE | 2024-06-20 20:30 | PC.NURSE ---
ambulated to bathroom. no c/o voiced
[2024-06-20 20:35] LABS: Albumin Level 4.4 g/dl (3.5-5.0); Chloride 104 mmol/L (98-107); Potassium 3.8 mmoL/L (3.5-5.1); Sodium 138 mmol/L (136-145)
[2024-06-20 20:38] LABS: Alanine Aminotransferase 21 U/L (12-78); Albumin/Globulin Ratio 1.8 (1.1-1.8); Alkaline Phosphatase 90 U/L (38-126); Anion Gap 14.8 mEq/L (5-15); Aspartate Amino Transferase 25 U/L (14-36); Bilirubin,Total 0.4 mg/dl (0.2-1.3); Blood Urea Nitrogen 7 mg/dl (7-17); Calcium 9.7 mg/dl (8.4-10.2); Carbon Dioxide 23 mmol/L (22.0-30.0); Creatinine Clearance Estimated 155 mL/min (50-200); Estimated Glomerular Filt Rate 123 ml/min (>60); GFR (African American) 149 ML/MIN (>60); Globulin 2.5 g/dL (1.3-3.2); Glucose 93 mg/dl (74-100); Total Protein,Serum 6.9 g/dl (6.3-8.2)
[2024-06-20 20:39] LABS: Magnesium 1.7 mg/dl (1.6-2.3)
[2024-06-20 20:54] LABS: Troponin I < 0.01 ng/ml (0.00-0.034)
[2024-06-20 20:56] LABS: Triiodothryronine (T3) Uptake 31 % (23.5-40.5)
[2024-06-20 20:57] LABS: Free Thyroxine Index 3.8 ug/dL (5.93-13.13); T4 (Thyroxine) 12.4 ug/dl (5.53-11.0)
[2024-06-20 21:11] LABS: Thyroid Stimulating Hormone 1.09 uIU/mL (0.465-4.68)
[2024-06-20 21:33] LABS: HCG,Quantitative 109450 mIU/ml (0-5.42)
== END 2024-06-20 21:46 | disposition home or self-care (01) ==
PROVIDERS: Physician Assistant; Emergency Provider Student in an Organized Health Care Education/Training Program; PCP Family Medicine
DX: O21.9 Vomiting of pregnancy, unspecified (principal); O99.891 Other specified diseases and conditions complicating pregnancy; R55 Syncope and collapse; Z3A.08 8 weeks gestation of pregnancy
CPT/HCPCS: 80053; 81001; 81025; 83735; 84436; 84443; 84479; 84484; 84702; 85025; 87086; 93005; 96361; 96374; 99284; J2550; J7030